=== PATIENT | male | born 1935 ===

== ENCOUNTER 2021-02-23 06:23 | Day surgery (SDC) | payer MEDICARE ==
[2021-02-23 07:17] LABS: Basophils % (Auto) 0.5 % (0.0-1.8); Eosinophils # (Auto) 0.1 K/mm3 (0.0-0.4); Eosinophils % (Auto) 3.5 % (0.0-4.3); Hematocrit 46.4 % (35.5-45.6); Hemoglobin 15.5 gm/dl (11.8-15.2); Lymphocytes # (Auto) 1.2 K/mm3 (1.2-5.4); Lymphocytes % (Auto) 36.9 % (13.4-35.0); Mean Corpuscular HGB Conc 34 % (32-34); Mean Corpuscular Volume 85 fl (84-94); Monocytes # (Auto) 0.4 K/mm3 (0.0-0.8); Platelet Count 169 K/mm3 (140-440); Red Blood Count 5.45 M/mm3 (3.65-5.03)
[2021-02-23 07:28] LABS: Partial Thromboplastin Time 28.8 Sec. (24.2-36.6)
[2021-02-23 07:30] LABS: BUN/Creatinine Ratio 19; Blood Urea Nitrogen 21 mg/dL (9-20); Calcium 9.5 mg/dL (8.4-10.2); Hemolysis Index 7
[2021-02-23] MEDS ORDERED: SODIUM CHLORIDE 0.9% 500 ML 500 ML IV SCH (08:00)
[2021-02-23] MEDS ORDERED: MORPHINE 2 MG/1 ML INJ IV ONE (08:13)
[2021-02-23] MEDS ORDERED: MORPHINE 2 MG/1 ML INJ ONE (08:13)
[2021-02-23] MEDS ORDERED: HEPARIN 10,000 UNITS/10 ML VIAL ONE (08:27)
[2021-02-23] MEDS ORDERED: HEPARIN/NS 5000 UNIT/500ML 1,000 ML IR ONE (08:27)
[2021-02-23] MEDS ORDERED: ALTEPLASE 2 MG INJ ONE ×2 (08:29→09:25)
[2021-02-23] MEDS ORDERED: WATER FOR INJ Sterile (PF) 10 ML ONE ×2 (08:29→09:25)
[2021-02-23] MEDS ORDERED: diphenhydrAMINE 50 MG/ML VIAL ONE (08:42)
[2021-02-23] MEDS ORDERED: SODIUM CHLORIDE 0.9% 100 ML ONE (09:06)
[2021-02-23] MEDS ORDERED: ceFAZolin/Water 2 GM/20 ML 2 GM/20 ML SYRINGE IV ONE (09:08)
[2021-02-23] MEDS: MIDAZOLAM 2 MG/2 ML INJ ONE ×3 (09:15→10:10)
[2021-02-23] MEDS: fentaNYL 100 MCG/2 ML INJ ONE ×5 (09:15→11:37)
[2021-02-23] MEDS: LIDOCAINE (2%) 20 MG/1 ML VIAL 20 ML MDV INFILTRATI ONE ×3 (09:16→10:44)
[2021-02-23] MEDS ORDERED: MIDAZOLAM 2 MG/2 ML INJ ONE (09:44)
[2021-02-23] MEDS ORDERED: HEPARIN/NS 5000 UNIT/500ML 500 ML IR ONE ×2 (10:35→11:20)
--- NOTE | 2021-02-23 12:59 | Short Stay Summary ---
Short Stay Documentation Date of service: 02/23/21 - History Principal diagnosis: Left chronic SF V DVT H&P: obtained from office - Allergies and Medications Current Medications: Allergies No Known Allergies Allergy (Verified 02/23/21 06:58) Home Medications Medication Instructions Recorded Confirmed Last Taken Type Apixaban [Eliquis] 2.5 mg PO BID 02/23/21 02/23/21 02/23/21 05:00 History Dorzolamide HCl/Timolol Maleat 1 drop INTRAOCULA BID 02/23/21 02/23/21 02/22/21 History [Dorzolamide-Timolol Eye Drops] 1 drop Enzalutamide [Xtandi] 40 mg PO HS 02/23/21 02/23/21 02/22/21 History 40 mg Gabapentin 300 mg PO QHS 02/23/21 02/23/21 02/22/21 History 300 mg Latanoprost 0.005% 1 drop INTRAOCULA DAILY 02/23/21 02/23/21 02/22/21 History 1 drop Losartan [Cozaar] 50 mg PO BID 02/23/21 02/23/21 02/23/21 History 50 mg Metoprolol [Lopressor TAB] 25 mg PO BID 02/23/21 02/23/21 02/23/21 05:00 History 25 mg cloNIDine [Catapres] 0.1 mg PO DAILY 02/23/21 02/23/21 02/23/21 05:00 History 0.1mg Active Medications Sodium Chloride (Nacl 0.9% 500 Ml) 500 mls @ 50 mls/hr IV DIRECT ROSIE Last Admin: 02/23/21 07:37 Dose: 50 mls/hr Documented by: - Brief post op/procedure progress note Date of procedure: 02/23/21 Pre-op diagnosis: Left leg DVT Post-op diagnosis: same Procedure: Left leg thrombectomy and venoplasty Anesthesia: local Surgeon: JOSE VENTURA Estimated blood loss: minimal Pathology: none - Disposition Condition at discharge: Good Disposition: [id number] TO HOME OR SELFCARE Short Stay Discharge Plan Activity: advance as tolerated Weight Bearing Status: Weight Bear as Tolerated Diet: regular Wound: keep clean and dry, per your surgeon's advice Follow up with: MAGGIE SANTANA MD [Primary Care Provider] - 7 Days
--- NOTE | 2021-02-23 13:13 | Operative Report ---
Operative Report Operative Report: Exam: Left leg thrombectomy and venoplasty Clinical indication: Patient with a history of chronic left femoral vein DVT. Patient is previously undergone evaluation and treatment of his deep venous system however, his persistent left chronic femoral vein DVT is still severely symptomatic causing severe lower extremity swelling and pain. Date: 02/23/2021 Procedure: Following an explanation of the risks, benefits and alternatives; written informed consent was obtained. The patient was brought to the ang iographic suite and placed in supine position on the examination table. Initial ultrasound evaluation of the patient's left groin demonstrated a patent left common femoral vein. The patient's left groin was prepped and draped in the usual sterile fashion. 1% lidocaine was used for anesthesia. Under ultrasound guidance, the left common femoral vein was cannulated with a 7 cm 21-gauge needle. A 0.018 guidewire was advanced distally. The needle was removed and a microsheath placed. Contrast was gently injected through the micro sheath which demonstrates that the common femoral vein is patent. The profunda is patent. There is nonvisualization of the the superficial femoral vein. Significant collateral inflow is also present. The 0.018 guidewire was exchanged for a 0.035 guidewire and the micro sheath exchanged for a 5 [place] vascular sheath. Multiple attempts to probe a variety of the collaterals and blind pathways in an attempt to cannulate the proximal aspect of the superficial femoral vein were ultimately unsuccessful. A decision was made therefore to attempt a more distal approach. The patient's left foot was prepped and draped in usual sterile fashion. Ultrasound demonstrated several patent veins however, significant collateral formation is identified. 1% lidocaine was used for anesthesia. Under ultrasound guidance, several of the lower leg veins were cannulated with a 7 cm 21-gauge needle. A 0.018 guidewire would not advance more distally secondary to tortuosity. The decision was made therefore to evaluate and approach the patient's occluded superficial femoral vein from a popliteal vein approach. Initial ultrasound evaluation of the popliteal vein demonstrated the popliteal vein is patent. Superficial femoral vein above this is not however. The patient was repositioned in the prone position. Patient was sterilely prepped and draped again. 1% lidocaine was used for anesthesia. Under ultrasound guidance, the popliteal vein was cannulated with a 7 cm 21-gauge needle. A 0.018 guidewire was advanced into the popliteal vein under fluoroscopy. The needle was removed and the inner portion of the micro sheath placed. The mandrel wire was removed and a V 18 guidewire was advanced. Contrast was then injected through the micro sheath following the removal of the guidewire which demonstrated what appeared to be nub of the superficial femoral vein. The V 18 guidewire was then advanced 2 to 3 cm into the occluded portion of the superficial femoral vein and the entire micro sheath reassembled and placed over the guidewire. The V 18 guidewire was then removed and a 0.035 guidewire placed. The micro sheath was removed and a 5 [place] sheath placed. A vertebral catheter was then advanced through the sheath over a 0.035 Glidewire. Selective cannulation of the occluded portion of the superficial femoral vein was performed distally and the together the catheter and guidewire manipulated more proximally under fluoroscopy. Ultimately, the catheter and guidewire were advanced through the unoccluded portion of the common femoral vein into the previously placed stents in the external and common iliac veins on the left. The guidewire was removed and contrast injected through the catheter which demonstrated appropriate intraluminal positioning. The sheath was upsized first to a 7 followed by an 8 [place] sheath. Venoplasty was then performed using an 8 mm x 100 mm balloon insufflated to 10 to 12 cristal at multiple locations throughout the occluded vein. Post venoplasty imaging demonstrated true luminal placement with chronic appearing thrombus throughout the entire length of the superficial femoral vein. Thrombectomy was then performed using Zelante AngioJet catheter. First, 10 mg of TPA diluted in 100 mg of saline was infused and allowed to dwell for 12 minutes. Following this, AngioJet aspiration thrombectomy was performed throughout the entire length of the superficial femoral vein. At the proximal aspect of the vein, additional venoplasty was performed using a 10 mm x 40 mm balloon at 3 separate locations in the proximal aspect of the femoral vein. Additional thrombectomy was performed using a 8 [place] guide cath throughout the entire length of the superficial femoral vein. Postintervention imaging demonstrated flow throughout the length of the superficial femoral vein from the popliteal vein to the external iliac veins. Brisk flow was present. At this point, the procedure was concluded and the catheters, guidewires and sheaths were removed and hemostasis achieved using manual compression at all locations. The patient tolerated the procedure well. There were no immediate postprocedure complications. Conscious sedation was performed under the guidance of radiologic nursing. Continuous cardiopulmonary monitoring was utilized. Impression: 1) Left lower extremity venography with accesses in the left common femoral vein, left calf vein and ultimately left popliteal vein demonstrating thrombus throughout the length of the superficial femoral vein from the popliteal vein to the common femoral vein. 2) Recannulation of the occluded superficial femoral vein throughout the length of it using mechanical thrombectomy and venoplasty as described. 3) At the conclusion of the procedure, luminal flow is present throughout the length of the superficial femoral vein.
[2021-02-23 14:36] VITALS: BP 156/87
== END 2021-02-23 15:03 | disposition home or self-care (01) ==
LOC: CATHLABREC 06:23
PROVIDERS: ATTEND Radiology Diagnostic Radiology
DX: I87.312 Chronic venous hypertension (idiopathic) with ulcer of left lower extremity (principal); H40.9 Unspecified glaucoma; I10 Essential (primary) hypertension; J44.9 Chronic obstructive pulmonary disease, unspecified; Z86.718 Personal history of other venous thrombosis and embolism; Z79.899 Other long term (current) drug therapy; Z87.891 Personal history of nicotine dependence; Z98.890 Other specified postprocedural states; Z85.89 Personal history of malignant neoplasm of other organs and systems; Z90.5 Acquired absence of kidney
CPT/HCPCS: 36415; 37187; 37248; 75820; 80048; 85025; 85610; 85730; 99156; 99157; C1725; C1757; C1769; C1887; C1894; J0690; J1200; J1644; J2250; J2270; J2997; J3010; J7040; 96374; Q9967